=== PATIENT | female | born 1970 | race Caucasian/White ===

== ENCOUNTER 2017-07-24 22:00 | Emergency (ER) | payer SELFPAY ==
[~2017-07-24] VITALS: Ht 172.7 cm; Wt 72.0 kg
[~2017-07-24 22:00] MED LIST: ACET1CAP18 PO
[2017-07-24 22:08] VITALS: BP 103/55; PULSE 66; RESP 20; TEMP 98; O2SAT 98
[2017-07-24] MEDS ORDERED: NAPR1TAB98 PO (22:27)
[2017-07-24] MEDS ORDERED: TRAM50 PO (22:31)
[2017-07-24] MEDS ORDERED: CLEO300C2 PO (22:31)
--- NOTE | 2017-07-24 22:31 | PD ---
HPI Chief Complaint: Skin Problem Time Seen by Provider: 22:25 Travel History International Travel<30 days: No Contact w/Intl Traveler<30days: No Traveled to known affect area: No History of Present Illness HPI RIGHT SWELLING TO RIGHT THIGH ONGOING FOR 4 DAYS, PAINFUL 03/24, INCREASING IN SIZE (ORIGINALLY A BOIL), NONRADIATING, PATIENT STATES SHE HAS BEEN DOING WARM COMPRESSES TWICE A DAY BUT IT CONTINUES TO GROW. NO ALLEVIATING FACTORS....AGGRAVATED BY HEAT.....NO ASSOC FACTORS OF MCGRATH/RASH ELSEWHERE/CP/ ABDPAIN/BACK PAIN/N/V/D/COUGH/RUNNY NOSE/IVDA ALL:PCN AND SULFA PER ANTIBIOTICS PMHX: DENIES EXCEPT FOR TONSILLECTOMY PFSH Past Medical History Hx Anticoagulant Therapy: No Diabetes: No Past Surgical History Tonsillectomy: Yes Social History Alcohol Use: Yes (once a month ) Tobacco Use: No Substance Use: No Allergies-Medications (Allergen,Severity, Reaction): Coded Allergies: iodine (Verified Allergy, Severe, 07/24/17) potassium iodide (Verified Allergy, Severe, 07/24/17) povidone-iodine (Verified Allergy, Severe, 07/24/17) shellfish derived (Verified Allergy, Severe, 07/24/17) sodium iodide (Verified Allergy, Severe, 07/24/17) sodium iodide (Verified Allergy, Severe, 07/24/17) Sulfa (Sulfonamide Antibiotics) (Verified Allergy, Unknown, UNKNOWN REACTION, 07/24/17) penicillin G (Verified Allergy, Unknown, UNKNOWN REACTION, 07/24/17) Reported Meds & Prescriptions Reported Meds & Active Scripts Active Cleocin (Clindamycin HCl) 300 Mg Cap 300 Mg PO Q6H 7 Days Ultram (Tramadol HCl) 50 Mg Tab 50 Mg PO Q6H PRN Reported Aleve PM (Naproxen Sodium-Diphenhydramine) 220-25 Mg Tab 2 Tab PO HS PRN Tylenol (Acetaminophen) 325 Mg Cap 325 Mg PO Q6H PRN Review of Systems General / Constitutional: No: Fever Eyes: No: Visual changes HENT: No: Headaches Cardiovascular: No: Chest Pain or Discomfort Respiratory: No: Shortness of Breath Gastrointestinal: No: Abdominal Pain Genitourinary: No: Dysuria Musculoskeletal: No: Pain Skin: Positive Lumps Neurologic: No: Weakness Psychiatric: No: Depression Endocrine: No: Polydipsia Hematologic/Lymphatic: No: Easy Bruising Physical Exam Narrative GENERAL: SKIN: Warm and dry. RIGHT LATERAL THIGH, 5CM INDURATION AND ERYTHEMA THAT EXTENDS ANOTHER 2 CM IN CIRCUMFERENCE....NO DRAINAGE, NO STREAKING HEAD: Atraumatic. Normocephalic. EYES: Pupils equal and round. No scleral icterus. No injection or drainage. ENT: No nasal bleeding or discharge. Mucous membranes pink and moist. NECK: Trachea midline. No JVD. CARDIOVASCULAR: Regular rate and rhythm. RESPIRATORY: No accessory muscle use. Clear to auscultation. Breath sounds equal bilaterally. GASTROINTESTINAL: Abdomen soft, non-tender, nondistended. Hepatic and splenic margins not palpable. MUSCULOSKELETAL: Extremities without clubbing, cyanosis, or edema. No obvious deformities. NEUROLOGICAL: Awake and alert. No obvious cranial nerve deficits. Motor grossly within normal limits. Five out of 5 muscle strength in the arms and legs. Normal speech. PSYCHIATRIC: Appropriate mood and affect; insight and judgment normal. Data Data Last Documented VS Vital Signs Date Time Temp Pulse Resp B/P (MAP) Pulse Ox O2 Delivery O2 Flow Rate FiO2 07/24/17 22:08 98.0 66 20 103/55 (71) 98 Orders Orders Clindamycin Inj (Cleocin Inj) (07/24/17 22:45) Acetamin-Hydrocod 325-5 Mg ([place] 5-325 (07/24/17 22:45) Ed Discharge Order (07/24/17 22:33) Clindamycin Inj (Cleocin Inj) (07/24/17 22:55) [facility] Medical Decision Making Medical Screen Exam Complete: Yes Emergency Medical Condition: Yes Medical Record Reviewed: Yes Differential Diagnosis CELLULITIS V ABSCES V LYMPHANGITIS Narrative Course PATIENT HAS A CELLULITIS WITHOUT FLUCTUANCE SO NO ABSCESS AT THIS POINT, AND NO STREAKING MEANING NO LYMPHANGITIS Diagnosis Primary Impression: Cellulitis of right thigh Patient Instructions: Cellulitis (ED), General Instructions Scripts Clindamycin (Cleocin) 300 Mg Cap 300 MG PO Q6H for Infection for 7 Days, #28 CAP 0 Refills Prov: Lyndon Pedersen MD 07/24/17 Tramadol (Ultram) 50 Mg Tab 50 MG PO Q6H Y for PAIN, #15 TAB 0 Refills Prov: Lyndon Pedersen MD 07/24/17 Disposition: 01 DISCHARGE HOME Condition: Stable Lyndon Pedersen MD Jul 24, 2017 22:31
[2017-07-24] MEDS ORDERED: CLINDAMYCIN PHOS 300 MG/2 ML VIAL IM ONE (22:45)
[2017-07-24] MEDS ORDERED: ACETAMINOPHEN/HYDROcodone 325 MG/5 MG TAB PO ONE (22:45)
[2017-07-24] MEDS ORDERED: CLINDAMYCIN PHOS 600 MG/4 ML VIAL IM ONE (22:55)
== END 2017-07-24 23:25 | disposition home or self-care (01) ==
LOC: PHED 22:00
DX: L03.115 Cellulitis of right lower limb (principal)
CPT/HCPCS: 96372